=== PATIENT | female | born 1930 | race Caucasian/White ===

== ENCOUNTER 2018-04-27 15:07 | Emergency (ER) | payer MEDICARE ==
[~2018-04-27] VITALS: Ht 154.9 cm; Wt 65.0 kg
[~2018-04-27 15:07] MED LIST: ALPR-623 PO; AMLO2.5T2 PO; SYN0.088T PO
[2018-04-27 15:51] VITALS: BP 165/74
== END 2018-04-27 16:10 | disposition home or self-care (01) ==
LOC: ER 15:08
DX: T18.9XXA Foreign body of alimentary tract, part unspecified, initial encounter (principal); I10 Essential (primary) hypertension; Z91.040 Latex allergy status; Z96.652 Presence of left artificial knee joint; X58.XXXA Exposure to other specified factors, initial encounter; Y93.89 Activity, other specified; Y92.89 Other specified places as the place of occurrence of the external cause; Y99.8 Other external cause status
CPT/HCPCS: 74018; 99283

== ENCOUNTER 2018-05-12 07:20 | Emergency (ER) | payer MEDICARE ==
[~2018-05-12] VITALS: Ht 154.9 cm; Wt 68.0 kg
[2018-05-12 07:23] VITALS: BP 146/62
== END 2018-05-12 08:00 | disposition home or self-care (01) ==
LOC: ER 07:20
DX: Z03.89 Encounter for observation for other suspected diseases and conditions ruled out (principal); I10 Essential (primary) hypertension; Z98.890 Other specified postprocedural states; Z96.652 Presence of left artificial knee joint; Z91.040 Latex allergy status; Z79.899 Other long term (current) drug therapy
CPT/HCPCS: 74018; 99283; 99284

== ENCOUNTER 2020-08-23 05:56 | Emergency (ER) | payer MEDICARE ==
[~2020-08-23] VITALS: Ht 154.9 cm; Wt 61.4 kg
[~2020-08-23 05:56] MED LIST changes: -ALPR-623 PO; -AMLO2.5T2 PO; +ATOR20TA66 PO; +BETA1TAB19 PO; +LEVO75TA PO; +LISI-790 PO; +PRED15SO6 RIGHTEYE; -SYN0.088T PO; +TIMO5DRO36 RIGHTEYE
[2020-08-23 07:06] LABS: BASOPHILS # (AUTO) 0.1 X10'3 (0-0.2); BASOPHILS % (AUTO) 0.8 % (0-1); EOSINOPHILS # (AUTO) 0.1 X10'3 (0-0.9); EOSINOPHILS % (AUTO) 2.2 % (0-6); HEMATOCRIT 39.4 % (35.0-45.0); LYMPHOCYTES # (AUTO) 1.2 X10'3 (1.1-4.8); LYMPHOCYTES % (AUTO) 19.1 % (21-51); MEAN CORPUSCULAR HEMOGLOBIN 28.9 PG (27.0-31.0); MEAN CORPUSCULAR HGB CONC 32.9 g/dL (33.0-36.5); MEAN CORPUSCULAR VOLUME 87.8 FL (78-98); MEAN PLATELET VOLUME 8.2 FL (7.4-10.4); MONOCYTES # (AUTO) 0.5 X10'3 (0-0.9); MONOCYTES % (AUTO) 8.1 % (2-12); NEUTROPHILS # (AUTO) 4.5 X10'3 (1.8-7.7); NEUTROPHILS % (AUTO) 69.8 % (42-75); PLATELET COUNT 239 X10'3 (140-440); RED BLOOD COUNT 4.49 X10'6 (4.20-5.60); RED CELL DISTRIBUTION WIDTH 14.9 % (11.5-14.5); WHITE BLOOD COUNT 6.5 X10'3 (4.5-11.0)
[2020-08-23 07:24] LABS: ALANINE AMINOTRANSFERASE 27 U/L (12-78); ALBUMIN 3.3 G/DL (3.4-5.0); ALBUMIN/GLOBULIN RATIO 0.8 (1.1-1.5); ALKALINE PHOSPHATASE 69 IU/L (46-116); ANION GAP 11 (8-16); ASPARTATE AMINO TRANSFERASE 26 U/L (10-37); BILIRUBIN,TOTAL 0.9 MG/DL (0.1-1.0); BLOOD UREA NITROGEN 13 MG/DL (7-18); BUN/CREATININE RATIO 13.5 (6.6-38.0); CALCIUM 8.6 MG/DL (8.5-10.1); CHLORIDE 106 MMOL/L (99-107); CREATININE 0.96 MG/DL (0.40-0.90); GLUCOSE 94 MG/DL (70-104); POTASSIUM 3.9 MMOL/L (3.5-5.1); SODIUM 143 MMOL/L (135-145); TOTAL CARBON DIOXIDE 26.4 MMOL/L (24-32); TOTAL PROTEIN 7.5 G/DL (6.4-8.2); eGFR 55 ML/MIN
[2020-08-23 08:05] VITALS: BP 168/78
== END 2020-08-23 08:24 | disposition home or self-care (01) ==
LOC: ER 05:57
DX: I10 Essential (primary) hypertension (principal); R00.2 Palpitations; E78.00 Pure hypercholesterolemia, unspecified; Z90.5 Acquired absence of kidney; Z91.040 Latex allergy status; Z79.899 Other long term (current) drug therapy
CPT/HCPCS: 36415; 71045; 80053; 83880; 84484; 85025; 93005; 99285

== ENCOUNTER 2021-05-27 17:00 | Emergency (ER) | payer MEDICARE ==
[~2021-05-27] VITALS: Ht 154.9 cm; Wt 55.9 kg
[~2021-05-27 17:00] MED LIST changes: -LISI-790 PO; +LISI5TAB22 PO
[2021-05-27 17:52] VITALS: BP 183/82
[2021-05-27] MEDS ORDERED: cloNIDine 0.1 mg tablet PO ONE (18:10)
== END 2021-05-27 18:24 | disposition home or self-care (01) ==
LOC: ER 17:01
DX: I10 Essential (primary) hypertension (principal); E78.00 Pure hypercholesterolemia, unspecified; Z98.890 Other specified postprocedural states; Z91.040 Latex allergy status; Z79.899 Other long term (current) drug therapy
CPT/HCPCS: 99283

== ENCOUNTER 2021-06-24 05:15 | Day surgery (SDC) | payer MEDICARE ==
[2021-06-21 10:33] LABS: CLARITY,URINE SLIGHTLY CLOUDY (Clear); COLOR,URINE YELLOW (Yellow); GLUCOSE, URINE NEGATIVE (Neg); KETONES,URINE NEGATIVE (Neg); LEUKOCYTE ESTERASE ,URINE MODERATE (Neg); NITRITES, URINE NEGATIVE (Neg); OCCULT BLOOD,URINE NEGATIVE (Neg); PROTEIN,URINE NEGATIVE (Neg); UROBILINOGEN,URINE 0.2 E.U/dL (0.2-1.0)
[2021-06-21 10:39] LABS: ALBUMIN 3.9 G/DL (3.4-5.0); ALBUMIN/GLOBULIN RATIO 0.9 (1.1-1.5); ALKALINE PHOSPHATASE 76 IU/L (46-116); BLOOD UREA NITROGEN 24 MG/DL (7-18); BUN/CREATININE RATIO 21.1 (6.6-38.0); CALCIUM 9.2 MG/DL (8.5-10.1); CHLORIDE 100 MMOL/L (99-107); CREATININE 1.14 MG/DL (0.40-0.90); PRE OP ALT 26 U/L (30-65); PRE OP ANION GAP 9 (8-16); PRE OP AST 25 U/L (10-37); PRE OP GLUCOSE 93 MG/DL (70-104); PRE OP POTASSIUM 4.1 MMOL/L (3.4-5.1); PRE OP SODIUM 138 MMOL/L (135-145); TOTAL CARBON DIOXIDE 29.2 MMOL/L (24-32); TOTAL PROTEIN 8.4 G/DL (6.4-8.2); eGFR 45 ML/MIN
[2021-06-21 10:41] LABS: BASOPHILS % (AUTO) 0.6 % (0-1); EOSINOPHILS # (AUTO) 0.1 X10'3 (0-0.9); EOSINOPHILS % (AUTO) 1.4 % (0-6); LYMPHOCYTES # (AUTO) 1.5 X10'3 (1.1-4.8); LYMPHOCYTES % (AUTO) 18.2 % (21-51); MEAN CORPUSCULAR HEMOGLOBIN 30.5 PG (27.0-31.0); MEAN CORPUSCULAR HGB CONC 33.4 g/dL (33.0-36.5); MEAN CORPUSCULAR VOLUME 91.4 FL (78-98); MEAN PLATELET VOLUME 8.2 FL (7.4-10.4); MONOCYTES # (AUTO) 0.7 X10'3 (0-0.9); NEUTROPHILS # (AUTO) 5.9 X10'3 (1.8-7.7); NEUTROPHILS % (AUTO) 71.8 % (42-75); PRE OP HEMATOCRIT 40.6 % (35.0-45.0); PRE OP HEMOGLOBIN 13.5 g/dL (12.0-16.0); PRE OP PLATELET COUNT 251 X10'3 (140-440); RED BLOOD COUNT 4.44 X10'6 (4.20-5.60); RED CELL DISTRIBUTION WIDTH 14.2 % (11.5-14.5)
[2021-06-21 10:49] LABS: UA COLLECTION TYPE NON-SPECIFIED
[2021-06-21 10:51] LABS: RBC,URINE NONE SEEN /HPF (0-2); SQUAMOUS EPITHELIAL CELL,UR MODERATE /LPF (FEW); WBC,URINE 0-4 /HPF (0-4)
[2021-06-21 10:52] LABS: BACTERIA,URINE 1+ /HPF (Neg); MUCUS STRANDS FEW /LPF (Neg); TRANSITIONAL EPI CELLS,URINE FEW /HPF
[2021-06-24] VITALS (10 sets, daily range): BP systolic 103–151; BP diastolic 47–70
[~2021-06-24] VITALS: Ht 154.9 cm; Wt 56.5 kg
[~2021-06-24 05:15] MED LIST changes: -ATOR20TA66 PO; -BETA1TAB19 PO; +HYDR25TA4 PO; +LISI10TA27 PO; -LISI5TAB22 PO; -PRED15SO6 RIGHTEYE; -TIMO5DRO36 RIGHTEYE; +ringers solution, lacted 1,000 ML IV SCH
[2021-06-24] MEDS ORDERED: famotidine 20mg tablet PO ONE (05:30)
[2021-06-24] MEDS ORDERED: cefazolin/dext.iso 2gm/50ml IV ONE (05:30)
[2021-06-24] MEDS ORDERED: bacitracin 15gm ointment TP ONE (06:39)
[2021-06-24] MEDS ORDERED: BUPIVAcaine/PF 2.5 mg/ml (0.25%) 30ml vial ONE (06:39)
[2021-06-24] MEDS ORDERED: sevoflurane 250ml liquid IH ONE (07:05)
[2021-06-24] MEDS ORDERED: midazolam 1 mg/ML 2ml injection ONE (07:09)
[2021-06-24] MEDS ORDERED: fentaNYL/PF 50MCG/1 ML 2ML syringe ONE ×2 (07:09→09:00)
[2021-06-24] MEDS ORDERED: propofol inj 20 ML IV ONE (07:11)
[2021-06-24] MEDS ORDERED: LIDOcaine 2% (20mg/ml) 5ml vial ONE (07:11)
[2021-06-24] MEDS ORDERED: ROPIVAcaine 0.5% (5mg/ml) 30ml vial ONE (07:13)
[2021-06-24] MEDS ORDERED: ondansetron/PF 4mg/2ml inj ONE (07:26)
[2021-06-24] MEDS ORDERED: dexamethasone sod phosphate 4mg/ml inj. ONE (07:26)
[2021-06-24] MEDS ORDERED: morphine 2 MG/ML inj. syringe IV PRN (07:50)
[2021-06-24] MEDS ORDERED: labetalol 20mg/4ml (5mg/ml) syringe IV PRN (07:50)
[2021-06-24] MEDS ORDERED: morphine 4 MG/ML inj SYRINge IV PRN (07:50)
[2021-06-24] MEDS ORDERED: fentaNYL/PF 50MCG/1 ML 2ML syringe IV PRN ×2 (07:50)
[2021-06-24] MEDS ORDERED: ringers solution, lacted 1,000 ML IV SCH (07:50)
[2021-06-24] MEDS ORDERED: hydrALAZINE 20mg/ml inj. IV PRN (07:50)
[2021-06-24] MEDS ORDERED: ondansetron/PF 4mg/2ml inj IV PRN (07:50)
--- NOTE | 2021-06-24 09:15 | NUR ---
PT ARRIVED TO [facility]IA [facility] ACCOMPANIED BY DR. ADAMS- ANESTHESIA REPORT GIVEN, PT WAKING UP, VSS, PIV 18G L A/C, RIGHT FOOT IN BOOT WITH 4 PINS PRESENT IN TOES, SOME BLEEDING NOTED AT SECOND TOE, FOOT ELEVATED PRESENTLY, TOES PINK AND WARM, SCD ON, DENIES PAIN
--- NOTE | 2021-06-24 11:05 | NUR ---
PT GETTING DRESSED, DENIES PAIN, RIGHT FOOT IN BOOT-TOES PINK AND WARM, NO CHANGES IN BLEEDING AT DRSG SITE, PIV D/CD-CANULA INTACT, PT ABLE TO AMBULATE TO TOILET WITH HELP, VSS, D/C INSTRUCTIONS GIVEN TO PT- ALL QUESTIONS ANSWERED, PT TAKEN WITH ALL BELONGINGS TO [facility] FOR TRANSPORT HOME.
== END 2021-06-24 11:05 | disposition home or self-care (01) ==
LOC: PAS 05:15
PROVIDERS: ATTEND Podiatrist Foot & Ankle Surgery
DX: M19.071 Primary osteoarthritis, right ankle and foot (principal); M20.11 Hallux valgus (acquired), right foot; M20.41 Other hammer toe(s) (acquired), right foot; M77.41 Metatarsalgia, right foot; M24.574 Contracture, right foot; G89.18 Other acute postprocedural pain; I10 Essential (primary) hypertension; E03.9 Hypothyroidism, unspecified; Z79.899 Other long term (current) drug therapy; Z98.890 Other specified postprocedural states; Z85.828 Personal history of other malignant neoplasm of skin; Z91.040 Latex allergy status; Z20.822 Contact with and (suspected) exposure to COVID-19
CPT/HCPCS: 20680; 28112; 28113; 28285; 28750; 36415; 64447; 64450; 73620; 76000; 80053; 81001; 82948; 85025; 87088; A6223; C1713; J0690; J1100; J2250; J2405; J2704; J2795; J3010; J3490; J7030; J7120; U0003; U0005; Z7506; Z7508; Z7512; A4215; A4618; A6449; A7000